=== PATIENT | male | born 2000 | race Caucasian/White ===

== ENCOUNTER 2025-05-05 18:22 | Emergency (ER) | payer OTHER ==
[2025-05-05 18:43] LABS: APPEARANCE,URINE CLEAR (CLEAR); GLUCOSE,URINE NEGATIVE (NEGATIVE); OCCULT BLOOD,URINE TRACE-INTACT (NEGATIVE)
[2025-05-05 18:44] LABS: PLATELET COUNT,PLT 216 10^3/uL (150-450); RED BLOOD CELL COUNT 5.42 10^6/uL (4.6-6.2); WHITE BLOOD CELL COUNT,WBC 16.7 10^3/uL (5.0-10.0)
[2025-05-05 18:49] LABS: BASOPHILS PERCENT AUTO 0.4 % (0.0-1.0); EOSINOPHILS PERCENT AUTO 0.1 % (1.0-3.0); LYMPHOCYTES PERCENT AUTO 75.0 % (20.5-50.1); MONOCYTES PERCENT AUTO 12.0 % (2-8); NEUTROPHILS PERCENT AUTO 12.5 % (42.2-75.2)
[2025-05-05 18:53] LABS: EPITHELIAL CELLS,URINE FEW /HPF (NOT SEEN)
[2025-05-05 18:56] LABS: INR 0.9 (0.9-1.2)
[2025-05-05 19:01] LABS: A/G RATIO 0.8; ALANINE AMINOTRANSFERASE,ALT 448 U/L (16-63); ASPARTATE AMNIOTRANSFERASE,AST 192 U/L (15-37); BILIRUBIN TOTAL 1.1 mg/dL (0.2-1.0); BLOOD UREA NITROGEN,BUN 14 mg/dL (7-18); CARBON DIOXIDE,CO2 26 mmol/L (21-32); CHLORIDE,CL 103 mmol/L (98-107); CREATININE 1.46 mg/dL (0.70-1.30); EST CRCL DRUG DOSING (CG) 89.14 mL/min; GLUCOSE RANDOM 123 mg/dL (70-99); POTASSIUM,K 3.8 mmol/L (3.5-5.1); PROTEIN TOTAL,TP 8.1 g/dL (6.4-8.2); SODIUM,NA 138 mmol/L (136-145)
[2025-05-05 19:02] LABS: ESTIMATED GFR 68 mL/min (>=60)
[2025-05-05 19:08] LABS: LACTIC ACID 1.8 mmol/L (0.4-2.0)
[2025-05-05] MEDS: Ketorolac 30 MG/ML SDV IVPUSH ONE (19:33)
[2025-05-05] MEDS: Sodium Chloride 0.9% 10 ML Syringe FLUSH PRN (19:35)
[2025-05-05 19:40] LABS: SEG NEUTROPHILS PERCENT MAN 7 % (42-75)
[2025-05-05 19:41] LABS: LYMPHOCYTES PERCENT MAN 86 % (20-50); MONOCYTES PERCENT MAN 7 % (2-8)
== END 2025-05-05 21:35 ==
LOC: DL.ED 18:22
DX: R74.01 Elevation of levels of liver transaminase levels (principal)
CPT/HCPCS: 36415; 76705; 80053; 81001; 82150; 82239; 83605; 83690; 83735; 85025; 85610; 86140; 96374; 99285-25; J1885